=== PATIENT | female | born 1935 | race Caucasian/White ===

== ENCOUNTER 2019-07-22 11:47 | Inpatient (IN) | payer MEDICARE, SELFPAY ==
[2019-07-22] VITALS (11 sets, daily range): BP systolic 116–149; BP diastolic 68–89; PULSE 64–88; RESP 16–18; TEMP 36.1–36.9; O2SAT 92–98; BMI 24.0; BMI 24.5; BMI 24.6
--- NOTE | 2019-07-22 12:01 | CT_ITS ---
STUDY: CT BRAIN WITHOUT CONTRAST REASON FOR EXAM: Female, 84 years old. Increased confusion and agitation. RADIATION DOSAGE (If Supplied By Facility): CTDIvol = ( 44.99 ) mGy, DLP = ( 745.49 ) mGycm TECHNIQUE: Transaxial CT imaging of the brain was performed without administration of intravenous contrast material. Individualized dose optimization techniques were used for this CT. COMPARISON: March 04, 2015. FINDINGS: Normal soft tissue structures. Normal calvarium. There is moderate cerebral atrophy with widening of the extra-axial spaces and ventricular dilatation. There are areas of decreased attenuation within the white matter tracts of the supratentorial brain, consistent with microvascular disease changes. There are bilateral occipital diminished densities. Normal basal ganglia and thalami. Normal brainstem. Normal cerebellum. There is no intracranial hemorrhage. There are no findings of an acute ischemic infarction. There are atherosclerotic calcifications. Normal visualized paranasal sinuses. CT/Brain/Head without Contrast IMPRESSION: Chronic involutional changes of the brain. 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 Electronically Signed: Socrates Villarreal MD at 12:52 EST , Service support ,
--- NOTE | 2019-07-22 12:03 | ED.VISSUMM ---
- ER Visit Summary Date of Service: 07/22/19 Chief Complaint: Confusion, altered mental status History of Present Illness: The patient is a 84 F who comes in with confusion. The patient's daughters are at bedside and given all of the history. The patient has a history of dementia but they have noted over the past week her mental status has started to change. Yesterday it got worse. She got a little bit of aggressive and was not acting like her normal self. Today they state that she has been mute and not answering any questions. They have not noticed any fevers. She does have a cough which is nothing new. They are concerned about dehydration and a urinary tract infection. Physical Examination: Vital signs reviewed. HEENT exam unremarkable. Heart is regular rate and rhythm without murmurs. Lungs are clear to auscultation. Abdomen is soft and nontender. Extremities reveal no edema. Skin exam normal. Neurologic exam shows that the patient is mute. She has diffuse generalized weakness but moves all 4 extremities equally. Test Results: Laboratory studies negative except for blood sugar of 200. Urinalysis negative for infection. CAT scan of the head reveals chronic changes with questionable age of a posterior infarct. Chest x-ray has a right lower lobe infiltrate Emergency Department Course and Treatment: Patient was given IV fluids. Her labs are unremarkable. She does have pneumonia on her x-ray. She has no strokelike symptoms I do not feel this represents a stroke. I will give the patient IV Levaquin. Discussed with hospitalist for admission Treatment Plan: [] Disposition: Admit Impression: Community-acquired pneumonia, delirium This note was generated with [employer] dictation software. It may contain incorrect words, spelling, and punctuation that were not noted in review of the chart prior to signing ED Disposition - Plan for ED Patient: Referrals: Bee Sauer MD [Primary Care Provider] -
[2019-07-22 12:12] LABS: Absolute Lymphocyte Count 2.38 X10^3/uL (0.83-4.51); Absolute Neutrophil Count 3.3 X10^3/uL (2.0-7.7); Basophil# 0.05 X10^3/uL; Basophil% 0.8 % (0-1); Eosinophil# 0.07 X10^3/uL; Eosinophils% 1.1 % (0-5); Hematocrit 46.6 % (37-47); Hemoglobin 15.1 g/dL (12.0-15.0); Lymphocyte # 2.38 X10^3/ul (4.0); Mean Corp Hgb Conc 32.4 g/dL (32-36); Mean Corpuscular Hgb 30.8 pg (27.0-32.0); Mean Corpuscular Volume 94.9 fL (81-99); Mean Platelet Vol. 9.1 fl (6.2-12.0); Monocyte# 0.74 X10^3/uL; Monocyte% 11.2 % (0-10); NRBC Flagged by Analyzer 0 % (0-5); Neutrophil # 3.34 X10^3/uL (2.7-7.7); Neutrophil % 50.4 % (47-70); Platelet Count 351 K/mm3 (150-450); RBC Distribution Width SD 45.1 fl (35.1-43.9); Red Blood Count 4.91 M/mm3 (4.2-5.4); White Blood Count 6.6 K/mm3 (4.4-11.0)
--- NOTE | 2019-07-22 12:21 | RAD_ITS ---
STUDY: X-RAY CHEST REASON FOR EXAM: Female, 84 years old. Cough and confusion TECHNIQUE: Single AP portable view of the chest. COMPARISON: 03/04/2015 FINDINGS: Hypoinflated lungs. Airspace disease in the right lower lobe with small effusion. Lungs are otherwise clear. Normal size heart. Normal mediastinum and kevin. Normal visualized pulmonary arteries. Normal visualized aortic arch and descending thoracic aorta. Normal visualized thoracic spine. Normal visualized ribs, clavicles, and shoulders. There is no demonstrated abnormality of the visualized soft tissue structures of the upper abdomen. RAD/Chest 1 View (Portable) IMPRESSION: Hypoinflated lungs with right lower lobe airspace disease and small effusion Electronically Signed: Jose Mayes DO at 13:35 EST Tel , Service support ,
[2019-07-22 12:27] LABS: ALB/GLOB Ratio 0.8 RATIO (0.9-2.4); AST(SGOT) 19 U/L (15-37); Alanine Aminotransfer ALT/SGPT 24 U/L (13-56); Albumin, Serum 3.2 g/dL (3.2-5.0); Alkaline Phosphatase 70 U/L (45-117); Anion Gap 7 (5-15); BUN 14 mg/dL (7-18); BUN/Creat Ratio 17.1 RATIO (10-20); Calcium,Total 8.8 mg/dL (8.5-10.1); Chloride 105 mmol/L (98-107); Creatinine, Serum 0.82 mg/dL (0.55-1.02); EST Glomerular Filtration Rate 71 mL/min (>60); Est Glom Filt Rate - Afr Amer 85 mL/min (>60); Estimated Creatinine Clearance 44.89 ml/min; Globulin 4.1 g/dL (2.2-4.2); Glucose 200 mg/dL (74-106); Potassium 3.7 mmol/L (3.5-5.1); Protein, Total 7.3 g/dL (6.4-8.2); Sodium Level 142 mmol/L (136-145)
[2019-07-22 13:09] LABS: Bacteria 0 SEEN /hpf (None Seen); Mucous, Urine 0 SEEN /hpf (<or=2+); Red Blood Cells-Urine 0 SEEN /hpf (0-5); White Blood Cells 0 SEEN /hpf (0-5)
[2019-07-22 13:20] LABS: Color, Urine Yellow (Yellow); Glucose, Dipstick Normal (Normal); Ketone-Dipstick Negative (Negative); Leukocyte Esterase-Dipstick Negative /ul (Negative); Nitrite-Dipstick Negative (Negative); Occult Blood-Urine Negative /ul (Negative); Protein-Dipstick Negative (Negative); Specific Gravity, Urine 1.015 (1.002-1.030); Urine Bilirubin Dipstick Negative (Negative); Urine Clarity Clear (Clear); Urine Urobilinogen Normal (Normal)
[2019-07-22 13:22] LABS: Squamous Epithelial Cells - UA 0-5 SEEN /hpf (5-10)
--- NOTE | 2019-07-22 14:04 | HP.PCM_ITS ---
History of Present Illness Date of Admission: 07/22/19 Chief Complaint: altered mental status The patient is a 84 year old F with a past medical history as listed which includes hypothyroidism and A. fib. She was admitted through the ED on 07/22/2019 with complaint of altered mental status. History was taken from her daughters to see the patient became suddenly very confused yesterday and started mumbling her words. She does have baseline dementia but she is usually able to recognize her family and communicate. However yesterday she became even more confused. She had an associated cough which was nonproductive. They denied any fever or chills, shortness of breath, nausea vomiting, abdominal pain or diarrhea. She had however had some incontinence last week and also noticed that she was not eating or drinking well at all. They therefore decided to bring her into the ED. Vitals in the ED was stable and chemistry was unremarkable apart from glucose of 200. CBC showed no leukocytosis. CT of the brain showed chronic involutional changes of the brain with posterior infarcts of uncertain age. Chest x-ray showed hypoinflated lungs with right lower lobe airspace disease and small effusion. She has been admitted to be managed for acute metabolic encephalopathy due to community-acquired pneumonia and dehydration. [] Past Medical History Allergies chlorpheniramine polistirex [From Tussionex] Allergy (Verified 07/22/19 11:48) Hives hydrocodone polistirex [From Tussionex] Allergy (Verified 07/22/19 11:48) Hives erythromycin base [Erythromycin Base] Adverse Reaction (Verified 07/22/19 11:48) Hives Home Medications: Ambulatory Orders Medication Instructions Recorded Atorvastatin Calcium [Lipitor] 20 mg PO QHS 08/22/13 Levothyroxine Sodium [Levoxyl] 88 mcg PO DAILY 08/22/13 Atenolol [Tenormin (beta kali)] 25 mg PO DAILY 07/22/19 Lorazepam 0.5 mg PO DAILY PRN 07/22/19 Warfarin Sodium 2 mg PO DAILY 07/22/19 Surgical History: no surgical history Psychiatric History: No pertinent psych hx MOPPER History: No pertinent MOPPER history Lives: Spouse/ Significant Other Smoking Status: Former smoker Alcohol: Occasional Drugs: None - *Family History Maternal History Items: Dementia, - Review of Systems Constitutional: Reports: Anorexia, Malaise, Weakness, Fatigue. Denies: Chills, Fever, Night Sweats Eyes: Denies: Blurred vision HEENT: Denies: Head Aches, Sinus Congestion, Sinus Drainage Cardiovascular: Denies: Chest Pain, Palpitations Respiratory: Reports: Cough. Denies: Pleuritic Pain, Shortness of Breath, Shortness of breath at rest, Shortness of breath upon exertion, Sputum production, Wheezing Gastrointestinal: Denies: Abdominal Pain, Nausea, Vomiting Genitourinary: Denies: Dysuria Musculoskeletal: Denies: Joint Pain, Joint Tenderness Skin: Denies: Rash, Wounds Neurological: Denies: Numbness, Tingling, Focal weakness Psychiatric: Denies: Anxiety, Depression, Homicidal Ideations, Suicidal Ideations Hematologic/ Lymphatic: Denies: Easy Bruising, Easy Bleeding VTE Information - Inpt Only VTE Present on Admission: No VTE Pharm Prophylaxis ordered?: Yes - Physical Exam Vitals/I&O's: Vital Signs Temp Pulse Resp BP Pulse Ox 98.1 F 77 16 129/80 H 92 07/22/19 13:31 07/22/19 13:23 07/22/19 13:23 07/22/19 13:23 07/22/19 13:23 Oxygen Delivery Method Room Air Weight: 140 lb Body Mass Index (BMI) 24.0 Intake and Output for Last 24 Hours 07/20/19 07/21/19 07/22/19 23:59 23:59 23:59 Intake Total 500 / 500 Balance 500 / 500 General: Alert, No apparent distress, Confused, Disoriented HEENT: Atraumatic, PERRLA, EOMI, Normocephalic Oral: Dry Mucosa Neck: Supple, No JVD, Negative Carotid Bruits Lungs: - - decreased breath sounds bibasally, with coarse crackles in right lower lung hylton. on room air Cardiovascular: Regular rate, Regular Rhythm, Normal S1, Normal S2, No murmurs Abdomen: Bowel Sounds Present, Soft, Non Tender, Non-Distended, No Hepato- splenomegaly Extremities: No clubbing, No cyanosis, No edema, Capillary Refill Less than 3 Seconds Skin: No rashes, No breakdown Musculoskeletal: No Tenderness to Palpation of Joints or Extremities Lymphatic: No Cervical, Supraclavicular, or Inguinal Adenopathy Neurological: Cranial nerves II-XII grossly intact, Neuro grossly intact Psych/Mental Status: - - confused Laboratory Results 07/22/19 12:05: WBC 6.6, RBC 4.91, Hgb 15.1 H, Hct 46.6, MCV 94.9, MCH 30.8, MCH C 32.4, RDW Std Deviation 45.1 H, RDW Coeff of Vera 13.0, Plt Count 351, MPV 9.1, Immature Gran % (Auto) 0.500, Neut % (Auto) 50.4, Lymph % (Auto) 36.0, Barrow % (Auto) 11.2 H, Eos % (Auto) 1.1, Baso % (Auto) 0.8, Absolute Neuts (auto) 3.3, Absolute Lymphs (auto) 2.38, Nucleated RBC % 0 07/22/19 12:05: Sodium 142, Potassium 3.7, Chloride 105, Carbon Dioxide 30.0, Anion Gap 7, BUN 14, Creatinine 0.82, Estim Creat Clear Calc 44.89, Est GFR (MDRD) Af Amer 85, Est GFR (MDRD) Non-Af 71, BUN/Creatinine Ratio 17.1, Glucose 200 H, Calcium 8.8, Total Bilirubin 0.70, AST 19, ALT 24, Alkaline Phosphatase 70, Total Protein 7.3, Albumin 3.2, Globulin 4.1, Albumin/Globulin Ratio 0.8 L 07/22/19 13:03: Urine Color Yellow, Urine Clarity Clear, Urine pH 5.0, Ur Specific [place] 1.015, Urine Protein Negative, Urine Glucose (UA) Normal, Urine Ketones Negative, Urine Occult Blood Negative, Urine Nitrite Negative, Urine Bilirubin Negative, Urine Urobilinogen Normal, Ur Leukocyte Esterase Negative, Urine RBC 0 SEEN, Urine WBC 0 SEEN, Ur Squamous Epith Cells 0-5 SEEN, Urine Bacteria 0 SEEN, Urine Mucus 0 SEEN Diagnostic Data Brain CT 07/22/19 12:01 IMPRESSION: Chronic involutional changes of the brain. 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 Electronically Signed: Socrates Villarreal MD at 12:52 EST , Service support , Chest X-Ray 07/22/19 12:21 IMPRESSION: Hypoinflated lungs with right lower lobe airspace disease and small effusion Electronically Signed: Jose Mayes DO at 13:35 EST Tel , Service support , Current Medications Levofloxacin (Levaquin Iv) 750 mg in 150 mls @ 100 mls/hr IV X1 ONE Stop: 07/22/19 15:31 Assessment/Plan 84 y/o admitted with a complaint of confusion and cough 1. Acute metabolic encephalopathy due to community-acquired pneumonia * Admit to [facility] with telemetry * Chest x-ray showed evidence of right lower lobe airspace disease and small effusion. * CT of the brain showed no acute intracranial pathology. UA was negative for UTI * CBC showed no leukocytosis. * give IV ceftriaxone and IV azithromycin * hydrate gently with IVF NS * urine for strep and Legionella and also check respiratory panel. * Give breathing treatments as needed * 2. Community-acquired pneumonia: As under 1. 3. Hypothyroidism: We will check TSH. Continue Synthroid. 4. A. fib: Currently rate and rhythm controlled. On atenolol 25 mg daily and Coumadin 2 mg daily. Check INR. DVT prophylaxis: On Coumadin. INR pending Code Status: * CODE STATUS was discussed with daughters. Daughter stated that they know that the mother is DNR but they do not know exactly which type anything that the documentation is at home. They feel unable to make a decision now and will want to go home and check the previous records to be able to decide exactly which code status their mother will be. * Current CODE STATUS is not yet determined. * Total [id number] time 16 minutes. Code Visit OBSV E&M: 51466 Initial observation care L3 Procedures: 43393 Advncd Care Plan 30 Min
[2019-07-22] MEDS: levoFLOXacin IV 750 MG/150 ML BAG 100 MG IV (14:08)
[2019-07-22 15:19] LABS: International Normalized Ratio 1.5; Prothrombin Time (Protime)PT. 17.9 SECONDS (11.7-14.9)
[2019-07-22 15:32] LABS: Hemoglobin A1c 7.2 % (4.2-6.3); Thyroid Stim Hormone (TSH) 5.45 uIU/mL (0.358-3.74)
[2019-07-22] MEDS: 0.9% Normal Saline 1,000 ML 100 ML IV (15:56)
[2019-07-22 16:51] LABS: Bedside Glucose 109 mg/dL (70-110)
[2019-07-22] MEDS: LORazepam 2 MG/ML Syringe 1 MG IV (17:57)
[2019-07-22] MEDS: 0.9% Saline Lock 10 ML Syringe IV (17:57)
[2019-07-22] MEDS: Atorvastatin Calcium 20 MG Tablet PO (20:50)
[2019-07-22 22:26] LABS: Bedside Glucose 95 mg/dL (70-110)
[2019-07-23] VITALS (7 sets, daily range): BP systolic 124–155; BP diastolic 74–86; PULSE 64–107; RESP 16–18; TEMP 36.2–37.1; O2SAT 92–95
[2019-07-23] MEDS: 0.9% Saline Lock 10 ML Syringe IV ×2 (01:44→22:37)
[2019-07-23] MEDS: 0.9% Normal Saline 1,000 ML 100 ML IV (01:44)
[2019-07-23] MEDS: LORazepam 2 MG/ML Syringe 1 MG IV ×2 (01:44→22:37)
[2019-07-23] MEDS: Levothyroxine 88 MCG Tablet PO (05:32)
[2019-07-23 06:11] LABS: Absolute Lymphocyte Count 1.32 X10^3/uL (0.83-4.51); Absolute Neutrophil Count 5.3 X10^3/uL (2.0-7.7); Basophil# 0.04 X10^3/uL; Basophil% 0.5 % (0-1); Eosinophil# 0.04 X10^3/uL; Eosinophils% 0.5 % (0-5); Hematocrit 40.8 % (37-47); Hemoglobin 13.4 g/dL (12.0-15.0); Lymphocyte # 1.32 X10^3/ul (4.0); Mean Corp Hgb Conc 32.8 g/dL (32-36); Mean Corpuscular Hgb 31.1 pg (27.0-32.0); Mean Corpuscular Volume 94.7 fL (81-99); Mean Platelet Vol. 9.4 fl (6.2-12.0); Monocyte# 0.99 X10^3/uL; Monocyte% 12.7 % (0-10); NRBC Flagged by Analyzer 0 % (0-5); Neutrophil # 5.32 X10^3/uL (2.7-7.7); Neutrophil % 68.5 % (47-70); Platelet Count 322 K/mm3 (150-450); RBC Distribution Width CV 12.8 % (11.6-14.6); RBC Distribution Width SD 44.5 fl (35.1-43.9); Red Blood Count 4.31 M/mm3 (4.2-5.4); White Blood Count 7.8 K/mm3 (4.4-11.0)
[2019-07-23 06:23] LABS: International Normalized Ratio 1.7; Prothrombin Time (Protime)PT. 19.5 SECONDS (11.7-14.9)
[2019-07-23 06:31] LABS: Anion Gap 7 (5-15); BUN 8 mg/dL (7-18); Calcium,Total 7.8 mg/dL (8.5-10.1); Chloride 108 mmol/L (98-107); Creatinine, Serum 0.66 mg/dL (0.55-1.02); EST Glomerular Filtration Rate 90 mL/min (>60); Est Glom Filt Rate - Afr Amer 109 mL/min (>60); Estimated Creatinine Clearance 36.81 ml/min; Glucose 128 mg/dL (74-106); Potassium 3.6 mmol/L (3.5-5.1); Sodium Level 142 mmol/L (136-145)
[2019-07-23 06:50] LABS: Bedside Glucose 145 mg/dL (70-110)
--- NOTE | 2019-07-23 10:11 | PN_ITS ---
Subjective: Patient was seen and examined today, she still remains confused, she does not appear to be in any distress at this time, patient is on 2 L nasal cannula and has a saturation of 94%. Patient's respiratory panel is pending at the time of this dictation. - Physical Exam Vitals/I&O's: Vital Signs Temp Pulse Resp BP Pulse Ox 98.7 F 99 16 132/80 H 94 07/23/19 05:35 07/23/19 05:35 07/23/19 05:35 07/23/19 05:35 07/23/19 05:35 Oxygen Flow Rate (L/min) 2 Oxygen Delivery Method Nasal Cannula Weight: 64.909 kg Body Mass Index (BMI) 24.5 Intake and Output for Last 24 Hours 07/21/19 07/22/19 07/23/19 23:59 23:59 23:59 Intake Total 710 / 710 980 / 980 Output Total 400 / 400 Balance 710 / 710 580 / 580 General: Alert, No apparent distress, Confused, Disoriented HEENT: Atraumatic, PERRLA, EOMI, Normocephalic Oral: Moist Mucosa Neck: Supple, Trachea Midline, Thyroid Normal Size and Texture Lungs: Clear to auscultation, Normal air movement, No rhonchi, No wheeze, No rales Cardiovascular: Normal S1, Normal S2, No murmurs, PMI Normal, Irregular Rate Abdomen: Bowel Sounds Present, Soft, Non Tender, Non-Distended Extremities: No clubbing, No cyanosis, No edema, Capillary Refill Less than 3 Seconds Skin: No rashes, No breakdown Musculoskeletal: No Tenderness to Palpation of Joints or Extremities Neurological: Cranial nerves II-XII grossly intact, Neuro grossly intact, Sen kaitlynn exam intact to light touch and pain Psych/Mental Status: Restless, - - Patient is alert but confused, she is somewhat restless today Microbiology Past 72 Hours 07/22/19 13:03 Urine Catheter - Catheter Streptococcus pneumoniae Antigen (M - Final 07/22/19 13:03 Urine Catheter - Catheter Legionella Antigen - Final Laboratory Results 07/22/19 12:05: WBC 6.6, RBC 4.91, Hgb 15.1 H, Hct 46.6, MCV 94.9, MCH 30.8, MCHC 32.4, RDW Std Deviation 45.1 H, RDW Coeff of Vera 13.0, Plt Count 351, MPV 9.1, Immature Gran % (Auto) 0.500, Neut % (Auto) 50.4, Lymph % (Auto) 36.0, Lyman % (Auto) 11.2 H, Eos % (Auto) 1.1, Baso % (Auto) 0.8, Absolute Neuts (auto) 3.3, Absolute Lymphs (auto) 2.38, Nucleated RBC % 0 07/22/19 12:05: Sodium 142, Potassium 3.7, Chloride 105, Carbon Dioxide 30.0, Anion Gap 7, BUN 14, Creatinine 0.82, Estim Creat Clear Calc 44.89, Est GFR (MDRD) Af Amer 85, Est GFR (MDRD) Non-Af 71, BUN/Creatinine Ratio 17.1, Glucose 200 H, Calcium 8.8, Total Bilirubin 0.70, AST 19, ALT 24, Alkaline Phosphatase 70, Total Protein 7.3, Albumin 3.2, Globulin 4.1, Albumin/Globulin Ratio 0.8 L 07/22/19 12:05: Hemoglobin A1c 7.2 H 07/22/19 12:05: TSH 5.45 H 07/22/19 13:03: Urine Color Yellow, Urine Clarity Clear, Urine pH 5.0, Ur Specific [place] 1.015, Urine Protein Negative, Urine Glucose (UA) Normal, Urine Ketones Negative, Urine Occult Blood Negative, Urine Nitrite Negative, Urine Bilirubin Negative, Urine Urobilinogen Normal, Ur Leukocyte Esterase Negative, Urine RBC 0 SEEN, Urine WBC 0 SEEN, Ur Squamous Epith Cells 0-5 SEEN, Urine Bacteria 0 SEEN, Urine Mucus 0 SEEN 07/22/19 14:52: PT 17.9 H, INR 1.5 07/22/19 16:45: POC Glucose 109 07/22/19 22:20: POC Glucose 95 07/23/19 05:30: WBC 7.8, RBC 4.31, Hgb 13.4, Hct 40.8, MCV 94.7, MCH 31.1, MCHC 32.8, RDW Std Deviation 44.5 H, RDW Coeff of Vera 12.8, Plt Count 322, MPV 9.4, Immature Gran % (Auto) 0.800, Neut % (Auto) 68.5, Lymph % (Auto) 17.0 L, Lyman % (Auto) 12.7 H, Eos % (Auto) 0.5, Baso % (Auto) 0.5, Absolute Neuts (auto) 5.3, Absolute Lymphs (auto) 1.32, Nucleated RBC % 0 07/23/19 05:30: PT 19.5 H, INR 1.7 07/23/19 05:30: Sodium 142, Potassium 3.6, Chloride 108 H, Carbon Dioxide 27.0, Anion Gap 7, BUN 8, Creatinine 0.66, Estim Creat Clear Calc 36.81, Est GFR (MDRD) Af Amer 109, Est GFR (MDRD) Non-Af 90, BUN/Creatinine Ratio 12.0, Glucose 128 H, Calcium 7.8 L 07/23/19 06:32: POC Glucose 145 H Current Medications Atenolol (Tenormin (Beta Santa)) 25 mg PO DAILY [facility] Atorvastatin Calcium (Lipitor) 20 mg PO QHS [facility] Last Admin: 07/22/19 20:50 Dose: 20 mg Documented by: Dextrose (D50w Syringe) 0 gm IV X1 PRN; Protocol PRN Reason: Hypoglycemia Glucagon () 1 mg IM .X1 PRN PRN Reason: Hypoglycemia Guaifenesin (Robitussin) 20 ml PO Q4H PRN PRN PRN Reason: COUGH Sodium Chloride () 1,000 mls @ 100 mls/hr IV .Q10H [facility] Stop: 07/23/19 10:51 Last Admin: 07/23/19 01:44 Dose: 100 mls/hr Documented by: Azithromycin 500 mg/ Dextrose 255 mls @ 250 mls/hr IV Q24 [facility] Stop: 07/28/19 10:01 Ceftriaxone Sodium 2 gm/ (Sodium Chloride) 50 mls @ 100 mls/hr IV Q24 [facility] Stop: 07/30/19 10:01 Sodium Chloride () 250 mls @ 15 mls/hr IV .[id number] PRN PRN Reason: Saline Flush Levothyroxine Sodium (Synthroid) 88 mcg PO DAILY@0600 [facility] Last Admin: 07/23/19 05:32 Dose: 88 mcg Documented by: Lorazepam (Ativan) 1 mg IV Q4H PRN PRN PRN Reason: AGITATION Last Admin: 07/23/19 01:44 Dose: 1 mg Documented by: Sertraline HCl (Zoloft) 100 mg PO DAILY [facility] Sodium Chloride () 10 - 40 ml IV UD PRN PRN Reason: SALINE FLUSH Last Admin: 07/23/19 01:44 Dose: 10 ml Documented by: Warfarin Sodium (Coumadin (Pbkc)) 2 mg PO DAILY@1700 [facility] Last Admin: 07/22/19 16:48 Dose: 2 mg Documented by: Warfarin Sodium (Coumadin (Pbkc)) 2.5 mg PO X1 ONE Stop: 07/23/19 10:02 Medical Necessity - Tobacco Use Smoking Status: Former smoker Assessment/Plan #1 right lower lobe community-acquired pneumonia-continue current antibiotic coverage, await respiratory panel #2 Alzheimer's dementia #3 metabolic encephalopathy secondary to community-acquired pneumonia on an overlay of Alzheimer's dementia #4 hyperlipidemia #5 hypothyroidism #6 coagulopathy secondary to chronic Coumadin usage-patient will be given extra warfarin today, recheck INR tomorrow #7 chronic atrial fib Telemetry will be discontinued-I do not feel the patient needs to be on telemetry
[2019-07-23] MEDS: Atenolol 25 MG Tablet PO (10:21)
[2019-07-23] MEDS: Sertraline 100 MG Tablet PO (10:21)
[2019-07-23] MEDS: Acetaminophen 325 MG Tablet 650 MG PO (12:09)
--- NOTE | 2019-07-23 17:15 | RAD_ITS ---
STUDY: X-RAY CHEST REASON FOR EXAM: Female, 84 years old. Cough. TECHNIQUE: Single frontal view of the chest. COMPARISON: July 22, 2019 FINDINGS: There are low lung volumes. There are bibasilar ill-defined opacities. There is perihilar fullness associated with prominent interstitial markings. There is cardiomegaly. Normal visualized aortic arch and descending thoracic aorta. Normal visualized thoracic spine. Normal visualized ribs, clavicles, and shoulders. There is no demonstrated abnormality of the visualized soft tissue structures of the upper abdomen. RAD/Chest 1 View (Portable) IMPRESSION: Bibasilar ill-defined opacities may be secondary to underlying atelectasis and/or pneumonia. Cardiomegaly. Pulmonary venous congestion with possible associated edema. Electronically Signed: Jaqueline Paul MD at 18:57 EST Tel , Service support ,
[2019-07-23 17:30] LABS: Bedside Glucose 92 mg/dL (70-110)
[2019-07-23] MEDS: Atorvastatin Calcium 20 MG Tablet PO (22:13)
[2019-07-23] MEDS: Hydrocortisone 2.5% Crm 1 APPLIC TOPICAL (22:14)
[2019-07-23 22:46] LABS: Bedside Glucose 114 mg/dL (70-110)
[2019-07-24] VITALS (8 sets, daily range): BP systolic 101–125; BP diastolic 57–74; PULSE 71–100; RESP 12–18; TEMP 36.4–37.2; O2SAT 88–95
[2019-07-24] MEDS: Levothyroxine 88 MCG Tablet PO (06:05)
[2019-07-24] MEDS: Atenolol 25 MG Tablet PO (09:26)
[2019-07-24] MEDS: Sertraline 100 MG Tablet PO (09:26)
[2019-07-24] MEDS: 0.9% Saline Lock 10 ML Syringe IV (09:27)
[2019-07-24 11:48] LABS: Prothrombin Time (Protime)PT. 22.9 SECONDS (11.7-14.9)
--- NOTE | 2019-07-24 13:25 | CASEMGMT ---
ERMA CHEN attempted to complete assessment with patient. Patient is confused. ERMA CHEN called [facility] and no answer at this time. ERMA CHEN called daughter Marga Rather, HPOA, and is able to answer assessment questions. Daughter wishes for patient to go to SNF at discharge. ERMA CHEN provided list of SNFs in-network over the phone to Marga. First choice is [facility], second [facility], third [place]. ERMA CHEN updated LESLI Petersen Felix regarding request for SNF at discharge and preferred choices. PCP: Cam[facility] Specialists: none Preferred Pharmacy: [facility] Insurance: [employer] [facility] Prescription Benefit: yes Living Will/HPOA: yes, and daughter Marga LNOK: , daughters Living Arrangements: Patient lives with in ranch style home with 2 steps and handle to enter the home. Patient has been requiring more assistance with ADLs. Private caregiver MWF for 3 hours to assist with house work. Transportation: Daughter DME/HHC: Patient has shower chair, BSC, walker, wheelchair at home. Disposition Plan: [facility] pending acceptance and precert. Yandy SANCHEZN, RN, CM
--- NOTE | 2019-07-24 14:00 | CASEMGMT ---
Addendum entered by Yandy Felix 07/24/19 14:51: SW received call from Mary Jane at [facility] stating she is able to accept pt and has submitted for pre-cert. [facility] Original Note: Social Work Note RN APRIL Vasquez updated this worker that pt's daughter is requesting pt go to 1. [facility] 2. [facility] 3. [facility] for short term rehabilitation. LESLI placed a call to [facility] and spoke with Mary Jane in admissions and provided referral. SW faxed referral. Plan: [facility] pending acceptance and pre-cert Yandy Felix [employer], [employer]URING [employer]ER
--- NOTE | 2019-07-24 16:45 | PN_ITS ---
Subjective: Patient was seen and examined today, her daughter was in the room during the time of my examination, patient appears to be more alert today but she still confused. I have decided to change her from IV antibiotics to oral antibiotics starting tomorrow. Family wants the patient to be temporarily placed in a correction facility at the time of discharge from the hospital, request was placed with her insurance carrier regarding this today. - Physical Exam Vitals/I&O's: Vital Signs Temp Pulse Resp BP Pulse Ox 97.8 F 75 12 110/65 95 07/24/19 14:29 07/24/19 14:38 07/24/19 14:38 07/24/19 14:29 07/24/19 14:38 Oxygen Flow Rate (L/min) 2 Oxygen Delivery Method Nasal Cannula Weight: 64.909 kg Body Mass Index (BMI) 24.5 Intake and Output for Last 24 Hours 07/22/19 07/23/19 07/24/19 23:59 23:59 23:59 Intake Total 710 / 710 3135 / 3135 335 / 335 Output Total 900 / 900 750 / 750 Balance 710 / 710 2235 / 2235 -415 / -415 General: Alert, Oriented x3, Cooperative, No apparent distress, Well developed, Well nourished HEENT: Atraumatic, PERRLA, EOMI, Normocephalic Oral: Moist Mucosa Neck: Supple, Trachea Midline, Thyroid Normal Size and Texture Lungs: Clear to auscultation, Normal air movement, No rhonchi, No wheeze, No rales Cardiovascular: No murmurs, PMI Normal, Irregular Rate, No rub noted Abdomen: Bowel Sounds Present, Soft, Non Tender, Non-Distended Extremities: No clubbing, No cyanosis, No edema, Capillary Refill Less than 3 Seconds Skin: No rashes, No breakdown Musculoskeletal: No Tenderness to Palpation of Joints or Extremities Neurological: Cranial nerves II-XII grossly intact, Neuro grossly intact, Sensory exam intact to light touch and pain Psych/Mental Status: - - Patient is alert but confused, she follows simple commands appropriately at times Microbiology Past 72 Hours 07/22/19 15:45 Mucosa - Nasopharyngeal Respiratory Panel (PCR) - Final 07/22/19 13:03 Urine Catheter - Catheter Streptococcus pneumoniae Antigen (M - Final 07/22/19 13:03 Urine Catheter - Catheter Legionella Antigen - Final Laboratory Results 07/23/19 17:21: POC Glucose 92 07/23/19 22:11: POC Glucose 114 H 07/24/19 11:32: PT 22.9 H, INR 2.0 Current Medications Acetaminophen (Tylenol) 650 mg PO Q6H PRN PRN PRN Reason: Pain Score 1-5/10 Last Admin: 07/23/19 12:09 Dose: 650 mg Documented by: Atenolol (Tenormin (Beta Santa)) 25 mg PO DAILY [facility] Last Admin: 07/24/19 09:26 Dose: 25 mg Documented by: Atorvastatin Calcium (Lipitor) 20 mg PO QHS [facility] Last Admin: 07/23/19 22:13 Dose: 20 mg Documented by: Guaifenesin (Robitussin) 20 ml PO Q4H PRN PRN PRN Reason: COUGH Hydrocortisone (Hytone) 1 applic TOPICAL BID PRN PRN; Protocol PRN Reason: Hemorrhoids Last Admin: 07/23/19 22:14 Dose: 1 applic Documented by: Sodium Chloride () 250 mls @ 15 mls/hr IV .[id number] PRN PRN Reason: Saline Flush Levofloxacin (Levaquin Tablet) 500 mg PO DAILY@0600 [facility] Levothyroxine Sodium (Synthroid) 88 mcg PO DAILY@0600 [facility] Last Admin: 07/24/19 06:05 Dose: 88 mcg Documented by: Lorazepam (Ativan) 1 mg IV Q4H PRN PRN PRN Reason: AGITATION Last Admin: 07/23/19 22:37 Dose: 1 mg Documented by: Sertraline HCl (Zoloft) 100 mg PO DAILY [facility] Last Admin: 07/24/19 09:26 Dose: 100 mg Documented by: Sodium Chloride () 10 - 40 ml IV UD PRN PRN Reason: SALINE FLUSH Last Admin: 07/24/19 09:27 Dose: 10 ml Documented by: Warfarin Sodium (Coumadin (Pbkc)) 2 mg PO DAILY@1700 [facility] Last Admin: 07/24/19 16:18 Dose: 2 mg Documented by: Medical Necessity - Tobacco Use Smoking Status: Former smoker Assessment/Plan #1 right lower lobe community-acquired pneumonia-continue current antibiotic coverage, respiratory panel was unremarkable. Patient will be changed to Levaquin tomorrow orally, chest x-ray today showed ill-defined opacities at the bases bilaterally-atelectasis and/or pneumonia cannot be excluded, there was also noted to be pulmonary venous congestion with possible associated edema- however, I do not believe the patient is currently in congestive heart failure or has pulmonary edema. #2 Alzheimer's dementia #3 metabolic encephalopathy secondary to community-acquired pneumonia on an overlay of Alzheimer's dementia, this appears to be improved today #4 hyperlipidemia #5 hypothyroidism #6 coagulopathy secondary to chronic Coumadin usage-patient's INR was 2 today #7 chronic atrial fib #8 debility-patient will need placement in a correction facility short- term, continue PT and OT #9 hemorrhoids-continue hydrocortisone cream twice a day to rectal area Code Visit Inpatient E&M: 40259 Subs Hosp L2
[2019-07-24] MEDS: levoFLOXacin 500 MG Tablet PO (17:58)
[2019-07-24] MEDS: Atorvastatin Calcium 20 MG Tablet PO (21:15)
[2019-07-25] VITALS (8 sets, daily range): BP systolic 103–111; BP diastolic 48–77; PULSE 80–112; RESP 16–24; TEMP 36.6–36.9; O2SAT 89–97
[2019-07-25] MEDS: levoFLOXacin 250 MG Tablet PO (05:15)
[2019-07-25] MEDS: Levothyroxine 88 MCG Tablet PO (05:16)
[2019-07-25] MEDS: Sertraline 100 MG Tablet PO (08:21)
[2019-07-25] MEDS: Atenolol 25 MG Tablet PO (08:21)
--- NOTE | 2019-07-25 08:23 | PN_ITS ---
Patient Problems: Active and Suspected Problems Community acquired pneumonia (Acute) Subjective: Chief complaint: Follow-up after admission for right lower lobe community- acquired pneumonia, worsening encephalopathy in context of history of Alzheimer's dementia. Patient seen and examined. No acute events overnight. Patient is confused and disoriented. She has been talking incoherently and I was not able to draw her attention but she kept talking. She could not answer me if she has any complaints. According to nursing staff, patient has been confused and disoriented at baseline but got worse recently. Her vital signs are stable. - Physical Exam Vitals/I&O's: Vital Signs Temp Pulse Resp BP Pulse Ox 98.1 F 112 H 18 111/72 95 07/25/19 08:18 07/25/19 08:18 07/25/19 08:18 07/25/19 08:18 07/25/19 08:18 Oxygen Flow Rate (L/min) 2 Oxygen Delivery Method Room Air Weight: 143 lb 1.6 oz Body Mass Index (BMI) 24.5 Intake and Output for Last 24 Hours 07/23/19 07/24/19 07/25/19 23:59 23:59 23:59 Intake Total 3135 / 3135 595 / 595 100 / 100 Output Total 900 / 900 750 / 750 300 / 300 Balance 2235 / 2235 -155 / -155 -200 / -200 General: Alert, No apparent distress, Confused, Disoriented HEENT: Atraumatic, PERRLA, EOMI, Normocephalic Oral: Moist Mucosa, No Gingival or Mucosal Lesions/ Ulcerations Neck: Supple, No JVD, Negative Carotid Bruits Lungs: Clear to auscultation, Normal air movement, No rhonchi, No wheeze, No rales, Diminished Cardiovascular: Normal S1, Normal S2, PMI Normal, Irregular Rate Abdomen: Bowel Sounds Present, Soft, Non Tender, Non-Distended, No Hepato- splenomegaly Extremities: No clubbing, No cyanosis, No edema Skin: No rashes, No breakdown Lymphatic: No Cervical, Supraclavicular, or Inguinal Adenopathy Neurological: Cranial nerves II-XII grossly intact, - - Moving all limbs. Psych/Mental Status: - - Patient is confused, incoherent speech and not able to follow commands appropriately. Microbiology Past 72 Hours 07/22/19 15:45 Mucosa - Nasopharyngeal Respiratory Panel (PCR) - Final 07/22/19 13:03 Urine Catheter - Catheter Streptococcus pneumoniae Antigen (M - Final 07/22/19 13:03 Urine Catheter - Catheter Legionella Antigen - Final Laboratory Results 07/24/19 11:32: PT 22.9 H, INR 2.0 Current Medications Acetaminophen (Tylenol) 650 mg PO Q6H PRN PRN PRN Reason: Pain Score 1-5/10 Last Admin: 07/23/19 12:09 Dose: 650 mg Documented by: Albuterol Sulfate (Ventolin Aerosols) 2.5 mg INHALATION Q6H.RT [facility] Atenolol (Tenormin (Beta Santa)) 25 mg PO DAILY [facility] Last Admin: 07/25/19 08:21 Dose: 25 mg Documented by: Atorvastatin Calcium (Lipitor) 20 mg PO QHS [facility] Last Admin: 07/24/19 21:15 Dose: 20 mg Documented by: Guaifenesin (Robitussin) 20 ml PO Q4H PRN PRN PRN Reason: COUGH Hydrocortisone (Hytone) 1 applic TOPICAL BID PRN PRN; Protocol PRN Reason: Hemorrhoids Last Admin: 07/23/19 22:14 Dose: 1 applic Documented by: Sodium Chloride () 250 mls @ 15 mls/hr IV .[id number] PRN PRN Reason: Saline Flush Levofloxacin (Levaquin Tablet) 250 mg PO DAILY@0600 [facility] Last Admin: 07/25/19 05:15 Dose: 250 mg Documented by: Levothyroxine Sodium (Synthroid) 88 mcg PO DAILY@0600 [facility] Last Admin: 07/25/19 05:16 Dose: 88 mcg Documented by: Lorazepam (Ativan) 1 mg IV Q4H PRN PRN PRN Reason: AGITATION Last Admin: 07/23/19 22:37 Dose: 1 mg Documented by: Sertraline HCl (Zoloft) 100 mg PO DAILY [facility] Last Admin: 07/25/19 08:21 Dose: 100 mg Documented by: Sodium Chloride () 10 - 40 ml IV UD PRN PRN Reason: SALINE FLUSH Last Admin: 07/24/19 09:27 Dose: 10 ml Documented by: Warfarin Sodium (Coumadin (Pbkc)) 2 mg PO DAILY@1700 [facility] Last Admin: 11/11/19 16:18 Dose: 2 mg Documented by: Medical Necessity - Tobacco Use Smoking Status: Former smoker Assessment/Plan All Active Problems Community acquired pneumonia (Acute) This is an 84 years old female patient presented to the emergency room because of increasing confusion and change in mental status, found to have right lower lung pneumonia. #1 right lower lobe community-acquired pneumonia: Started on oral Levaquin, renally adjusted dose today, was on IV Levaquin. She has been afebrile, no leukocytosis. Pneumococcal and Legionella antigen were negative. Respiratory panel for viruses were negative. Plan to continue same treatment, repeat CBC and BMP tomorrow morning, patient will need placement to longterm facility. #2 metabolic encephalopathy: Probably secondary to baseline dementia and worsened by pneumonia. Patient is confused and disoriented at baseline, she has been incoherent and difficult to draw her attention. CT scan brain showed no acute findings. #3 Alzheimer's dementia: Supportive treatment. #4 chronic atrial fibrillation: Rate is controlled, continue atenolol for rate control, continue Coumadin for anticoagulation. INR is therapeutic. #5 hypothyroidism: Continue levothyroxine. #6 hyperlipidemia: Continue statins. #7 DVT prophylaxis: On Coumadin, INR is therapeutic. This note was generated with Nabto dictation software. It may contain incorrect words, spelling, and punctuation that were not noted in checking the note before signing. Code Visit OBSV E&M: 77310 Subsequent observation care L2
[2019-07-25] MEDS: LORazepam 2 MG/ML Syringe 1 MG IV (08:27)
[2019-07-25] MEDS: 0.9% Saline Lock 10 ML Syringe IV (08:27)
--- NOTE | 2019-07-25 10:15 | CASEMGMT ---
Addendum entered by Yandy Felix 07/25/19 14:31: LESLI received call from Mary Jane at [facility] stating pre-cert has been obtained. LESLI updated Mary Jane that medically pt is not ready for discharge today and will hopefully be ready for discharge tomorrow. Addendum entered by Yandy Felix 07/25/19 13:14: LESLI again attempted to call pt's daughter Marga to update on acceptance to [facility] pending pre-cert but no answer and voicemail is full. Original Note: Social Work Note Per physician pt is not medically cleared for discharge today. LESLI faxed updated clinicals to [facility] and wrote on fax cover sheet that pt is not medically cleared for discharge today. LESLI attempted to call pt's daughter Marga but voicemail is full. LESLI will attempt to call Marga again. LESLI received call from Sari at [facility] stating pt's insurance is asking if pt will be on IV antibiotics at discharge. LESLI informed Sari that this worker has not been informed if pt will be on IV antibiotics or not and usually if pt is on IV antibiotics this worker is made aware. Sari stated that insurance is asking about pt's previous level of functioning. LESLI reviewed RN APRIL Vasquez notes as she spoke with pt's daughter yesterday about prior level of functioning. Pt was independent at home, able to go to bathroom herself, and lives in ranch style home with . Pt does hire someone to do housework. LESLI updated Sari that pt is not medically cleared for discharge today. Plan: [facility] pending pre-cert Yandy Felix IMPLEMENTATION LEAD, STENCIL MACHINE OPERATOR
[2019-07-25] MEDS: Albuterol 2.5 MG/3 ML VIAL.NEB. INHALATION ×2 (13:03→18:44)
--- NOTE | 2019-07-25 15:45 | CASEMGMT ---
Social Work Note Pt's daughter Marga called in. LESLI spoke with Marga and updated her that pt has been accepted [facility] and pre-cert has been obtained. LESLI updated Marga that physician is thinking discharge tomorrow and that transportation can be arranged. Marga states understanding. Plan: [facility] skilled likely tomorrow Yandy Felix BRAKE REPAIRER BUS, ASSISTANT DEAN
[2019-07-25] MEDS: Atorvastatin Calcium 20 MG Tablet PO (20:24)
[2019-07-26 01:24] VITALS: PULSE 102; RESP 20
[2019-07-26] MEDS: Albuterol 2.5 MG/3 ML VIAL.NEB. INHALATION ×2 (01:24→06:52)
[2019-07-26 02:21] VITALS: BP 104/53; PULSE 64; RESP 17; TEMP 35.8; O2SAT 93
[2019-07-26] MEDS: levoFLOXacin 250 MG Tablet PO (05:06)
[2019-07-26] MEDS: Levothyroxine 88 MCG Tablet PO (05:07)
[2019-07-26 05:20] LABS: Absolute Lymphocyte Count 1.96 X10^3/uL (0.83-4.51); Absolute Neutrophil Count 3.5 X10^3/uL (2.0-7.7); Basophil# 0.07 X10^3/uL; Basophil% 1.1 % (0-1); Eosinophil# 0.07 X10^3/uL; Eosinophils% 1.1 % (0-5); Hemoglobin 13.6 g/dL (12.0-15.0); Lymphocyte # 1.96 X10^3/ul (4.0); Lymphocyte % 30.8 % (19-41); Mean Corp Hgb Conc 32.4 g/dL (32-36); Mean Corpuscular Hgb 30.4 pg (27.0-32.0); Mean Corpuscular Volume 93.8 fL (81-99); Mean Platelet Vol. 9.4 fl (6.2-12.0); Monocyte# 0.77 X10^3/uL; Monocyte% 12.1 % (0-10); NRBC Flagged by Analyzer 0 % (0-5); Neutrophil # 3.45 X10^3/uL (2.7-7.7); Neutrophil % 54.3 % (47-70); Platelet Count 268 K/mm3 (150-450); RBC Distribution Width CV 12.9 % (11.6-14.6); RBC Distribution Width SD 44.3 fl (35.1-43.9); Red Blood Count 4.48 M/mm3 (4.2-5.4); White Blood Count 6.4 K/mm3 (4.4-11.0)
[2019-07-26 05:28] LABS: International Normalized Ratio 2.1; Prothrombin Time (Protime)PT. 23.4 SECONDS (11.7-14.9)
[2019-07-26 05:34] LABS: Anion Gap 9 (5-15); BUN 11 mg/dL (7-18); BUN/Creat Ratio 14.7 RATIO (10-20); Calcium,Total 8.5 mg/dL (8.5-10.1); Chloride 107 mmol/L (98-107); Creatinine, Serum 0.75 mg/dL (0.55-1.02); EST Glomerular Filtration Rate 78 mL/min (>60); Est Glom Filt Rate - Afr Amer 95 mL/min (>60); Estimated Creatinine Clearance 36.81 ml/min; Glucose 98 mg/dL (74-106); Potassium 3.4 mmol/L (3.5-5.1); Sodium Level 143 mmol/L (136-145)
[2019-07-26 06:52] VITALS: PULSE 96; RESP 20; O2SAT 93
[2019-07-26 08:45] VITALS: BP 100/58; PULSE 82; RESP 16; TEMP 36.4; O2SAT 93
[2019-07-26] MEDS: Atenolol 25 MG Tablet PO (09:09)
[2019-07-26] MEDS: Sertraline 100 MG Tablet PO (09:09)
--- NOTE | 2019-07-26 09:33 | TREXTCAR_ITS ---
- Diet 07/22/19 14:53 Diet: Cardiac/Low Cholesterol Food consistency:: Puree Liquid Consistency:: Regular/Thin Is pt able to select menu?: No Diet Comments: supervision from staff - Suggestions for Active Care Change Position every (hours): 3 Hours to sit in a chair: 2 Times a day to sit in chair: 3 - Therapies Weight Bearing: Weight bearing as tolerated Physical Therapy: Eval and Treat Occupational Therapy: Eval and Treat Speech Therapy: Eval and Treat - Allergies/Procedures Done in Hospital Allergies/Adverse Reactions: Allergies chlorpheniramine polistirex [From Tussionex] Allergy (Verified 07/22/19 11:48) Hives hydrocodone polistirex [From Tussionex] Allergy (Verified 07/22/19 11:48) Hives erythromycin base [Erythromycin Base] Adverse Reaction (Verified 07/22/19 11:48) Hives - Type of Care/Length of Stay Estimated LOS: Convalescent Care Less Than 30 days Type of Care Needed: Skilled Rehab Potential: Fair Prognosis: Fair - Additional Orders/Day of Discharge H&P will serve as current which was dated: 07/22/19 Day of Discharge: 07/26/19 - Dietary and Speech Recommendations Dietitian Recommendations/Changes: Suggest liberalize therapeutic diet to Regular with consistency/texture as per VIDEO CAMERA OPERATOR. Will add puree-suitable ONS to meal trays for increased kcal/protein. May need to consider TF support if PO does not improve. Please obtain actual body weight as able. - Follow Up Care Primary Care Physician: Bee Sauer MD [Primary Care Provider] - Please follow up with your Primary Care Physician in: 1-2 weeks.
--- NOTE | 2019-07-26 10:48 | CASEMGMT ---
Addendum entered by Yandy Felix 07/26/19 10:55: Correction transportation is scheduled for 11:30/11:45am with [facility] transporting. Original Note: Social Work Note Pt is discharging to [facility] today. LESLI faxed completed discharge paperwork to Mary Jane at [facility] including transfer to extended care facility, signed medication list and any scripts. Original in SNF folder and copy on pt's chart. LESLI completed convalescent 7000 in [facility]. Original in SNF folder and copy on pt's chart. LESLI called [facility] and arranged transportation via cot due to pt's dementia and confusion for 11:00am. Transportation form completed and placed on SNF folder and copy on pt's chart. LESLI attempted to call pt's daughter Marga to update on discharge and transportation time but no answer and voicemail is full so not able to leave message. LESLI placed a call to Mary Jane at [facility] and updated her on discharge and transportation time. LESLI updated by pocket secretary assembler that [facility] called and will be at [facility] around 11:30/11:45am now to transport pt instead of 11:00am. LESLI placed a call to pt's Sincere and updated him on discharge and transportation time. LESLI placed a call to back to [facility] and updated Ameya that transportation is now arranged for 11:30/11:45am. LESLI updated RN on transportation time. Plan: [facility] skilled today with [facility] transporting via cot at 12:00pm Yandy Felix DEGREE CLERK, IMPREGNATOR ELECTROLYTIC CAPACITORS
--- NOTE | 2019-07-26 11:02 | DS.PCM_ITS ---
Discharge Date and Diagnosis Date of Admission: 07/22/19 Date of Discharge: 07/26/19 - Primary Discharge Diagnosis #1 right lower lobe community-acquired pneumonia. #2 metabolic encephalopathy, in setting of baseline dementia and was worsened by pneumonia. - Secondary Discharge Diagnosis Chronic Problems Hyperlipidemia (Chronic) Hypothyroidism (Chronic) Chronic atrial fibrillation (Chronic) Alzheimer's dementia (Chronic) Hospital Course and Treatment Imaging Results: Clinical Impression(s) from Imaging Studies Brain CT 07/22/19 12:01 IMPRESSION: Chronic involutional changes of the brain. 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 Electronically Signed: Socrates Villarreal MD at 12:52 EST , Service support , Chest X-Ray 07/22/19 12:21 IMPRESSION: Hypoinflated lungs with right lower lobe airspace disease and small effusion Electronically Signed: Jose Mayes DO at 13:35 EST Tel , Service support , Chest X-Ray 07/23/19 17:15 IMPRESSION: Bibasilar ill-defined opacities may be secondary to underlying atelectasis and/or pneumonia. Cardiomegaly. Pulmonary venous congestion with possible associated edema. Electronically Signed: Jaqueline Paul MD at 18:57 EST Tel , Service support , Operations: None Procedures: None Summary of Care Provided: Patient seen and examined on the day of discharge and appeared to be stable to be discharged to prison facility. Patient remained confused and disoriented at baseline but today, she was able to answer couple questions appropriately. She denies any pain and she denies shortness of breath. Her vital signs have been stable and she has been afebrile. The patient is a 84 year old F patient presented to the emergency room because of increasing confusion and she was found to have right lower lobe community acquired pneumonia. Patient had no fever throughout the stay and her white blood cell count was normal. CT scan brain was done for the increasing confusion and showed no acute findings. Initial chest x-ray revealed hyperinflated lungs with right lower lobe airspace disease and small pleural effusion on the right side. Patient was treated with IV antibiotics. Chest x- ray repeated next day after admission and revealed bibasilar ill-defined opacities which could be pneumonia versus atelectasis. Patient continued on IV antibiotics. Pneumococcal and Legionella antigen were negative. Respiratory panel for viruses were negative. Patient remained afebrile throughout the hospital stay. Her routine blood work was unremarkable. Patient discharged to prison facility in a stable medical condition, discharged on Levaquin to 50 mg p.o. daily for more 5 days of treatment, continued on her previous home medications without any changes were recommended, her INR upon discharge was 2.1, recommended follow-up with PCP in 1 to 2 weeks and order was put in in the discharge instructions. - Physical Exam Vitals/I&O's: Vital Signs Temp Pulse Resp BP Pulse Ox 97.5 F L 82 16 100/58 L 93 07/26/19 08:45 07/26/19 08:45 07/26/19 08:45 07/26/19 08:45 07/26/19 08:45 Oxygen Flow Rate (L/min) 2 Oxygen Delivery Method Room Air Weight: 143 lb 1.28 oz Body Mass Index (BMI) 24.5 Intake and Output for Last 24 Hours 07/24/19 07/25/19 07/26/19 23:59 23:59 23:59 Intake Total 595 / 595 760 / 760 60 / 60 Output Total 750 / 750 300 / 300 Balance -155 / -155 460 / 460 60 / 60 General: Alert, Cooperative, No apparent distress, Confused, Disoriented HEENT: Atraumatic, PERRLA, EOMI, Normocephalic Oral: Moist Mucosa, No Gingival or Mucosal Lesions/ Ulcerations Neck: Supple, No JVD, Negative Carotid Bruits, Trachea Midline, Thyroid Normal Size and Texture Lungs: Clear to auscultation, No rhonchi, No wheeze, No rales, Diminished Cardiovascular: Normal S1, Normal S2, PMI Normal, Irregular Rate Abdomen: Bowel Sounds Present, Soft, Non Tender, Non-Distended, No Hepato- splenomegaly Extremities: No clubbing, No cyanosis, No edema Skin: No rashes, No breakdown Neurological: Cranial nerves II-XII grossly intact, Motor Exam 5/5 strength throughout Psych/Mental Status: Appropriate, Flat Affect Microbiology Past 72 Hours 07/22/19 15:45 Mucosa - Nasopharyngeal Respiratory Panel (PCR) - Final Laboratory Results 07/26/19 05:02: WBC 6.4, RBC 4.48, Hgb 13.6, Hct 42.0, MCV 93.8, MCH 30.4, MCHC 32.4, RDW Std Deviation 44.3 H, RDW Coeff of Vera 12.9, Plt Count 268, MPV 9.4, Immature Gran % (Auto) 0.600, Neut % (Auto) 54.3, Lymph % (Auto) 30.8, [place] % (Auto) 12.1 H, Eos % (Auto) 1.1, Baso % (Auto) 1.1 H, Absolute Neuts (auto) 3.5, Absolute Lymphs (auto) 1.96, Nucleated RBC % 0 07/26/19 05:02: PT 23.4 H, INR 2.1 07/26/19 05:02: Sodium 143, Potassium 3.4 L, Chloride 107, Carbon Dioxide 27.0, Anion Gap 9, BUN 11, Creatinine 0.75, Estim Creat Clear Calc 36.81, Est GFR (MDRD) Af Amer 95, Est GFR (MDRD) Non-Af 78, BUN/Creatinine Ratio 14.7, Glucose 98, Calcium 8.5 Current Medications Acetaminophen (Tylenol) 650 mg PO Q6H PRN PRN PRN Reason: Pain Score 1-5/10 Last Admin: 07/23/19 12:09 Dose: 650 mg Documented by: Albuterol Sulfate (Ventolin Aerosols) 2.5 mg INHALATION Q6H.RT [facility] Last Admin: 07/26/19 06:52 Dose: 2.5 mg Documented by: Atenolol (Tenormin (Beta Santa)) 25 mg PO DAILY [facility] Last Admin: 07/26/19 09:09 Dose: 25 mg Documented by: Atorvastatin Calcium (Lipitor) 20 mg PO QHS [facility] Last Admin: 07/25/19 20:24 Dose: 20 mg Documented by: Guaifenesin (Robitussin) 20 ml PO Q4H PRN PRN PRN Reason: COUGH Hydrocortisone (Hytone) 1 applic TOPICAL BID PRN PRN; Protocol PRN Reason: Hemorrhoids Last Admin: 07/23/19 22:14 Dose: 1 applic Documented by: Sodium Chloride () 250 mls @ 15 mls/hr IV .[id number] PRN PRN Reason: Saline Flush Levofloxacin (Levaquin Tablet) 250 mg PO DAILY@0600 [facility] Last Admin: 07/26/19 05:06 Dose: 250 mg Documented by: Levothyroxine Sodium (Synthroid) 88 mcg PO DAILY@0600 [facility] Last Admin: 07/26/19 05:07 Dose: 88 mcg Documented by: Lorazepam (Ativan) 1 mg IV Q4H PRN PRN PRN Reason: AGITATION Last Admin: 07/25/19 08:27 Dose: 1 mg Documented by: Sertraline HCl (Zoloft) 100 mg PO DAILY [facility] Last Admin: 07/26/19 09:09 Dose: 100 mg Documented by: Sodium Chloride () 10 - 40 ml IV UD PRN PRN Reason: SALINE FLUSH Last Admin: 07/25/19 08:27 Dose: 10 ml Documented by: Warfarin Sodium (Coumadin (Pbkc)) 2 mg PO DAILY@1700 [facility] Last Admin: 07/25/19 16:41 Dose: Not Given Documented by: Home Medications: Medications to take at Discharge Atorvastatin Calcium [Lipitor] 20 mg PO QHS 08/22/13 Levothyroxine Sodium [Levoxyl] 88 mcg PO DAILY 08/22/13 Atenolol [Tenormin (beta santa)] 25 mg PO DAILY 07/22/19 Lorazepam 0.5 mg PO DAILY PRN 07/22/19 Sertraline HCl 100 mg PO DAILY 07/22/19 Warfarin Sodium 2 mg PO DAILY 07/22/19 levoFLOXacin tablet [Levaquin tablet] 250 mg PO DAILY@0600 #5 tab 07/26/19 Following Prescrptions Were Given to Patient: levoFLOXacin tablet [Levaquin tablet] 250 mg PO DAILY@0600 #5 tab Prescription Printed Primary Care Physician: Bee Sauer MD [Primary Care Provider] - Please follow up with your Primary Care Physician in: 1-2 weeks. Disposition: Senior Care facility Minutes spent on discharge:: 26 Patient Condition:: Stable Medical Necessity - Tobacco Use Smoking Status: Former smoker Meaningful Use Info Meaningful Use Diagnoses (Choose all that apply): None applicable Code Visit Inpatient E&M: 70641 Disch Hosp
== END 2019-07-26 11:57 | disposition skilled nursing facility (03) | DRG 948 ==
LOC: ED 13:59 → MS3 14:09
PROVIDERS: Internal Medicine; Admitting Provider Student in an Organized Health Care Education/Training Program; Emergency Provider Emergency Medicine; Family Provider Internal Medicine; PCP Internal Medicine; Referring Provider Student in an Organized Health Care Education/Training Program; Visit Provider Hospitalist
DX: R41.0 Disorientation, unspecified (principal); I48.20 Chronic atrial fibrillation, unspecified; D68.9 Coagulation defect, unspecified; E86.0 Dehydration; E78.5 Hyperlipidemia, unspecified; E03.9 Hypothyroidism, unspecified; G30.9 Alzheimer's disease, unspecified; F02.80 Dementia in other diseases classified elsewhere, unspecified severity, without behavioral disturbance, psychotic disturbance, mood disturbance, and anxiety; Z79.890 Hormone replacement therapy; Z79.01 Long term (current) use of anticoagulants; Z79.899 Other long term (current) drug therapy; Z87.891 Personal history of nicotine dependence
CPT/HCPCS: 36415; 70450; 71045; 80048; 80053; 81001; 82962; 83036; 84443; 85025; 85610; 87449; 87633; 92526; 92610; 94640; 94667; 97110; 97116; 97163; 97165; 97530; 97535; 99251; 99285; J7030; J7040; P9612; A4216; G0463; J0696